=== PATIENT | female | born 1955 | race African-American/Black ===

== ENCOUNTER 2017-02-19 04:41 | Observation (INO) | payer OTHER ==
--- NOTE | ~2017-02-19 | DS ---
Discharge Summary [id number] [place]. [address] NAME: BRIGID MILES : 59 STATUS : DIS Patel PAT#: [id number] AGE: 61 ADM/REG DATE : 02/19/17 MR#: [id number] REPORT SERV DATE: 02/22/17 DICTATED BY: JEFFREY GAITAN DATE: 02/21/17 REPORT STATUS : Draft TRANSCRIBED BY: MODL DATE: 02/21/17 ADMISSION DATE: 02/19/2017 DISCHARGE DATE: 02/21/2017 PRIMARY CARE: At [facility]. REASON FOR ADMISSION: This is a 61-year-old female who was admitted with abdominal pain, intractable nausea and vomiting. DISCHARGE DIAGNOSES: 1. Epigastric abdominal pain, resolving. 2. Transaminitis. 3. Nausea and vomiting. 4. Hypothyroid. 5. Chronic lung pain. HOSPITAL COURSE: Epigastric abdominal pain. The patient had a GI consult and was worked up by Dr. Katherin Foster and Dr. Mock. She would have initial imaging on admission, a CT of the abdomen and pelvis which would show a moderately distended gallbladder with suspected small amount of hyperdense sludge or small gallstone at the gallbladder fundus with no significant gallbladder wall thickening or acute stranding of phlegm or inflammatory changes. The patient would then have a gallbladder ultrasound, which would show cholelithiasis and small amount of gallbladder sludge and thickened gallbladder wall. No reported positive sonographic Haro sign and no abnormal pericholecystic fluid and recommended further evaluation with a HIDA scan. The patient's HIDA scan would show nonvisualization of small bowel with persistent hepatic uptake of the radiotracer throughout the exam, findings highly suspicious for common bile duct obstruction, although the duct is not distended on recent CT and ultrasound from day prior. There are calcifications at the expected distal common duct on the CT concerning for choledocholithiasis. Further evaluation with ERCP should be considered. Surgery did not have plans for surgery at this time. Dr. Mock thought her transaminitis was related to medication she was on. She was on Celexa and Remeron at home. Those were discontinued, thought to possibly be contributing to transaminitis. Also, the patient's total bilirubin which was elevated at 2.3 on admission went down to 1.3 today and her abdominal pain was improved. Dr. Mock did not have a plan for scope or ERCP at this time, so both Surgery and GI were okay with the patient discharging and follow up at Dr. Mock's office in one week if the patient was tolerating food. We had her eat solid diet today for lunch, and she tolerated, so we are discharging her home. As previously mentioned, her bilirubin was 2.3 on admission, it went down to 1.3. Alkaline phosphatase was 141, is 162 today. AST was 767, went down to 275. ALT was at 578, went down to 465, and any ways, we will discontinue the Remeron and Celexa at home and continue Protonix that was started here at the hospital. DISCHARGE CONDITION: Stable. DISCHARGE MEDICATIONS: 1. Synthroid 88 mcg p.o. daily. Discharge Summary [address] [address] NAME: BRIGID MILES : 59 STATUS : DIS Patel PAT#: [id number] AGE: 61 ADM/REG DATE : 02/19/17 MR#: [id number] REPORT SERV DATE: 02/22/17 DICTATED BY: JEFFREY GAITAN DATE: 02/21/17 REPORT STATUS : Draft TRANSCRIBED BY: PRINCESS DATE: 02/21/17 2. Estrogen conjugated 0.625 mg daily. 3. Folic acid 1 mg p.o. daily. 4. Vitamin C 500 mg p.o. daily. 5. Vitamin D 1000 units p.o. daily. 6. Multivitamin one tablet daily. 7. Protonix 40 mg p.o. daily. DISCHARGE PLAN: The patient is discharged to home. Follow up with Dr. Mock in one week. Possibly, will still need ERCP. DICTATED BY: PATY Lam/PRINCESS Jeffrey Gaitan APN / [id number] CC: Maksim Quiroz M.D.
--- NOTE | ~2017-02-19 | CN ---
Consultation Report [facility] [address] [place]. [address] NAME: BRIGID MCGARRY : 59 STATUS : ADM Patel PAT#: [id number] AGE: 61 ADM/REG DATE : 02/19/17 MR#: [id number] REPORT SERV DATE: 02/20/17 DICTATED BY: TEOFILO ASKEW DATE: 02/20/17 REPORT STATUS : Draft TRANSCRIBED BY: MODL DATE: 02/20/17 GI CONSULTATION. DATE OF CONSULTATION: 02/19/2017 REASON FOR CONSULTATION: Elevated liver enzymes, abdominal pain, nausea, and vomiting. HISTORY OF PRESENT ILLNESS: Ms Mcgarry is a 61-year-old black female with a history of hypothyroidism, who presented to [facility] with a chief complaint of abdominal pain, nausea and vomiting which was acute in onset, emesis was bilious in nature without any coffee-ground or hematemesis. She also reported some diarrhea at that time. On admission, her white count is normal, and it was noted that her liver enzymes were elevated. Her bilirubin was 1.1, AST 767, ALT 352, and alkaline phosphatase 99. CT scan was done for her abdominal pain which showed a distended gallbladder with some sludge, but no evidence of cholecystitis. A followup ultrasound was also performed which revealed no sonographic Haro sign. The gallbladder appeared normal with the exception of some mild thickening and small gallstones and sludge. No pericholecystic fluid was seen. Common bile duct appeared normal and no other biliary dilatation. Viral hepatitis was drawn which is pending at this time. Of note, her thyroid is elevated with a TSH of 5.070. PAST MEDICAL HISTORY: Hypothyroidism. SOCIAL HISTORY: No smoking, alcohol, or drug use. FAMILY HISTORY: No GI history. MEDICATIONS: Reviewed. ALLERGIES: REVIEWED. PHYSICAL EXAMINATION: VITAL SIGNS: The patient is afebrile. Her vital signs are stable. GENERAL: The patient is awake, alert, and oriented x3. Well developed, well nourished, in no acute distress. HEENT: Atraumatic and normocephalic. Anicteric. Mucous membranes are moist. CARDIAC: S1, S2. CHEST: Clear to auscultation bilaterally. ABDOMEN: Soft. Mild tenderness in the left abdomen without any rebound or guarding. Bowel sounds normoactive. LABORATORY DATA: WBC 7.4, hemoglobin 12, hematocrit 35.9, and platelets 174. Sodium 143, potassium 3.9, chloride 109, bicarb 29, BUN 5, creatinine 0.86, and glucose 96. Consultation Report [facility] [address] [place]. [address] NAME: BRIGID MCGARRY : 59 STATUS : ADM Patel PAT#: [id number] AGE: 61 ADM/REG DATE : 02/19/17 MR#: [id number] REPORT SERV DATE: 02/20/17 DICTATED BY: TEOFILO ASKEW DATE: 02/20/17 REPORT STATUS : Draft TRANSCRIBED BY: MODL DATE: 02/20/17 Bilirubin 1.1, AST 767, ALT 364, alkaline phosphatase 99. CT scan and ultrasound as dictated above. IMPRESSION AND PLAN: Elevated liver enzymes of unclear etiology predominantly with a hypertransaminasemia, does not appear to be in obstructive process, rather looks more inflammatory/hepatocellular in nature. We need viral hepatitis panel. We will follow up with HIDA scan, which has been ordered. No new medications, and denies any Tylenol use. We would also check INR for further evaluation of hepatic function, may consider also checking PRAKASH, anti-smooth muscle antibody, antimitochondrial antibody, as well. I will discuss the above with Dr. Bin Mock, who will resume care in the morning. PERICO/PRINCESS Teofilo Askew MD / [id number] CC: Tera Hamilton M.D.
--- NOTE | ~2017-02-19 | HP ---
History And Physical [facility] [address] [facility] [place]. [address] NAME: BRIGID MCGARRY : 59 STATUS : ADM Patel PAT#: [id number] AGE: 61 ADM/REG DATE : 02/19/17 MR#: [id number] REPORT SERV DATE: 02/19/17 DICTATED BY: ESTEBAN BAER DATE: 02/19/17 REPORT STATUS : Draft TRANSCRIBED BY: MODL DATE: 02/19/17 DATE OF ADMISSION: 02/19/2017 CHIEF COMPLAINT: Abdominal pain, intractable nausea, and vomiting. HISTORY OF PRESENT ILLNESS: This is a 61-year-old female with a history of hypothyroidism, who presents to the emergency room at [facility] with the above-mentioned complaint. History is obtained from the patient, and reviewing data available on the [employer] system. According to the patient, she had been in her usual state of health until yesterday in the evening when she started experiencing severe epigastric abdominal pain. This was soon followed by drenching sweats and nausea with vomiting. She also had loose watery bowel movements also. This went on through the night. She lay down, was very uncomfortable, and finally she decided to come to the emergency room to be evaluated. In the emergency room, initial workup revealed a CT of the abdomen showing distended gallbladder, sludge versus stone. No evidence of acute cholecystitis. She continued to have severe intractable nausea and vomiting requiring intravenous Zofran and Phenergan. Hospitalist Service is asked to admit her for further evaluation and treatment. At the time of my evaluation, she denied any chest pain or palpitations. She did not have any orthopnea. She had no cough, hemoptysis, night sweats, or weight loss. She has not had any falls or loss of consciousness. No history of fevers, chills. She did have nausea and vomiting as mentioned above. It was mostly bilious. No history of hematemesis. Her diarrhea was without blood as well. No history of hematochezia or hematuria. Her abdominal pain was mostly epigastric radiated to the back, but it was continuous and cramping. No history of recent travel or exposures. PAST MEDICAL HISTORY: Significant for history of hypothyroidism. SOCIAL HISTORY: She does not smoke, drink, or use recreational drugs. She used to be a nursery school teacher. FAMILY HISTORY: Noncontributory. MEDICATIONS: At home are not available at this time. Nursing staff is working on it. REVIEW OF SYSTEMS: As in history of present illness. All other systems were reviewed and are quite unremarkable. PHYSICAL EXAMINATION: GENERAL: This is a pleasant 61-year-old in mild distress due to her abdominal pain and nausea and vomiting. She is alert, awake, oriented to time, place, and person. HEENT: Head is atraumatic, normocephalic. Her pupils are equal, reacting to light and History And Physical [address] [address] NAME: BRIGID MCGARRY : 59 STATUS : ADM Patel PAT#: [id number] AGE: 61 ADM/REG DATE : 02/19/17 MR#: [id number] REPORT SERV DATE: 02/19/17 DICTATED BY: ESTEBAN BAER DATE: 02/19/17 REPORT STATUS : Draft TRANSCRIBED BY: PRINCESS DATE: 02/19/17 accommodating. External ocular muscles are intact. Membranes are moist and pink. Sclerae are nonicteric. NECK: Supple with no jugular venous distention, lymphadenopathy, or thyromegaly. LUNGS: Clear to auscultation with no wheezes, rubs, or crackles. HEART: Heart sounds were regular with no murmurs, rubs, or gallops. ABDOMEN: Soft, nontender, not distended. Bowel sounds are present. There was no organomegaly. EXTREMITIES: Showed no cyanosis, clubbing, or edema. NEUROLOGIC: Grossly intact. No focal sensory or motor deficits. Higher functions appeared intact. She was able to move all four extremities. VITAL SIGNS: Her vital signs today showed a temperature of 97.8, pulse 70, respirations 20 a minute, blood pressure was 157/72, oxygen saturations were 99% on 2 L of oxygen via nasal cannula. LABORATORY DATA: Reviewed. Normal CMP with a blood glucose of 221. Her alkaline phosphatase was 99, ALT and AST were refilled 352 and 767 respectively, lipase was 167. CBC showed a normal white blood cell count, hemoglobin, hematocrit, and platelet count. Urinalysis was grossly unremarkable. Films of the CT scan of her abdomen and pelvis were reviewed and interpreted by me. Official radiology report was also reviewed. There is distended gallbladder possibly from sludge versus stone. There was no evidence of acute cholecystitis. IMPRESSION: 1. Acute epigastric abdominal pain. 2. Intractable nausea and vomiting. 3. Elevated liver enzymes. 4. Hyperglycemia. 5. Abnormal CT of the abdomen. 6. Hypothyroidism. PLAN: We will admit Mrs. Mcgarry to the Hospitalist Service with defensive monitoring for a 24 hour observation. We will keep her n.p.o. for now. Provide her intravenous Zofran and Phenergan for nausea and vomiting on an as-needed basis. We will start her on IV fluids for volume replacement. We will consult Gastroenterology to see her. We will also control blood sugars with NovoLog given subcutaneously per sliding scale and check her A1c. We will also check her TSH and continue her thyroid replacement therapy. She will be on SCDs for DVT prophylaxis while here. We will also get an ultrasound of her gallbladder this morning. She will be on SCDs for DVT prophylaxis while here. I have discussed the above plans with the patient. Her questions were answered, and she is agreeable to the above recommendations. Hospitalist Service will be following her during her stay. /PRINCESS History And Physical [address] [address] NAME: BRIGID MCGARRY : 59 STATUS : ADM Patel PAT#: [id number] AGE: 61 ADM/REG DATE : 02/19/17 MR#: [id number] REPORT SERV DATE: 02/19/17 DICTATED BY: ESTEBAN BAER DATE: 02/19/17 REPORT STATUS : Draft TRANSCRIBED BY: PRINCESS DATE: 02/19/17 Esteban Baer M.D. / [id number] CC: Tera Hamilton M.D.
[2017-02-19 01:59] LABS: BASOPHILS 0.1 %; BASOPHILS ABSOLUTE 0.01 10/3/uL (0.0-0.16); EOSINOPHILS 0 %; HEMATOCRIT 35.9 % (36.0-48.0); IMMATURE GRANULOCYTES 0.2 %; IMMATURE GRANULOCYTES ABSOLUTE 0.02 10/3/uL (0.0-0.11); LYMPHOCYTES 14.8 %; LYMPHOCYTES ABSOLUTE 1.56 10/3/uL (0.67-4.30); MEAN CORPUS HGB CONC 33.4 g/dL (32.0-36.0); MEAN CORPUSCULAR VOLUME 89.8 fL (80-100); MEAN PLATELET VOLUME 11.7 fL (9.2-13.0); MONOCYTES 4.7 %; NEUTROPHILS 80.2 %; NEUTROPHILS ABSOLUTE 8.45 10/3/uL (2.02-8.40); PLATELET COUNT 189 10/3/uL (150-400); RBC DISTRIBUTION WIDTH 12.2 % (12.0-16.0)
[2017-02-19 02:03] LABS: ER CBC TAT 0 Hrs 21 Mins; MANUAL DIFF NO %; WHITE BLOOD CELLS 10.5 10/3/uL (4.5-10.5)
[2017-02-19 02:09] LABS: ALBUMIN 3.8 G/DL (3.5-5.0); BUN (BLOOD UREA NITROGEN) 9 MG/DL (6-23); CALCIUM, SERUM 8.7 MG/DL (8.5-10.4); CHLORIDE, SERUM 107 MMOL/L (96-112); CO2 (CARBON DIOXIDE) 27 MMOL/L (24-34); GFR AFRICAN AMERICAN 71 ML/MIN (>=60); GFR NON AFRICAN AMERICAN 62 ML/MIN (>=60); GLOBULIN 3.7 G/DL (2.5-4.1); POTASSIUM, SERUM 3.7 MMOL/L (3.5-5.3); SGOT(AST) 767 U/L (5-40); SGPT(ALT) 352 U/L (5-65); SODIUM, SERUM 143 MMOL/L (135-148); TOTAL PROTEIN 7.5 G/DL (6.0-8.5)
[2017-02-19 02:10] LABS: ALKALINE PHOSPHATASE 99 U/L (45-117); GLUCOSE, SERUM 221 MG/DL (60-99); TOTAL BILIRUBIN 1.1 MG/DL (0-1.2)
[2017-02-19 02:13] LABS: ASCORBIC ACID (UR NOT ORDER) NEG (NEG); BILIRUBIN, URINE NEGATIVE (NEG); ER URINALYSIS TAT 0 Hrs 00 Mins; KETONE, URINE 20 MG/DL (NEG); LEUKOCYTE ESTERASE(NOT OR NEG (NEG); NITRITE (URINE) NEG (NEG); WBC (NOT ORDERED) (RFLEX) 2 (0-5)
[~2017-02-19 04:41] MED LIST: FOLIC PO; PREM625 PO; SYN88 PO
[2017-02-19 10:22] LABS: BASOPHILS 0.1 %; BASOPHILS ABSOLUTE 0.01 10/3/uL (0.0-0.16); EOSINOPHILS 0 %; HEMATOCRIT 35.9 % (36.0-48.0); LYMPHOCYTES 15.9 %; LYMPHOCYTES ABSOLUTE 1.18 10/3/uL (0.67-4.30); MEAN CORPUS HGB CONC 33.4 g/dL (32.0-36.0); MEAN CORPUSCULAR HEMOGLOB 29.5 pg (26.0-34.0); MEAN CORPUSCULAR VOLUME 88.2 fL (80-100); MEAN PLATELET VOLUME 11.7 fL (9.2-13.0); NEUTROPHILS ABSOLUTE 5.94 10/3/uL (2.02-8.40); PLATELET COUNT 174 10/3/uL (150-400); RBC DISTRIBUTION WIDTH 12.6 % (12.0-16.0); RED CELL COUNT 4.07 10/6/uL (4.0-5.6); WHITE BLOOD CELLS 7.4 10/3/uL (4.5-10.5)
[2017-02-19 10:23] LABS: MANUAL DIFF NO %
[2017-02-19 10:44] LABS: BUN (BLOOD UREA NITROGEN) 5 MG/DL (6-23); CALCIUM, SERUM 8.4 MG/DL (8.5-10.4); CHLORIDE, SERUM 109 MMOL/L (96-112); CO2 (CARBON DIOXIDE) 29 MMOL/L (24-34); CREATININE 0.86 MG/DL (0.55-1.02); GFR AFRICAN AMERICAN 86 ML/MIN (>=60); GFR NON AFRICAN AMERICAN 74 ML/MIN (>=60); GLUCOSE, SERUM 96 MG/DL (60-99); PHOSPHORUS, SERUM 3.3 MG/DL (2.5-4.5); POTASSIUM, SERUM 3.9 MMOL/L (3.5-5.3); SODIUM, SERUM 143 MMOL/L (135-148)
[2017-02-19 12:02] LABS: IRON, SERUM 41 MCG/DL (35-150)
[2017-02-19 12:03] LABS: ACETAMINOPHEN LEVEL (TYLENOL) < 2.0 MCG/ML (10.0-20.0)
[2017-02-19 12:04] LABS: ALCOHOL < 10 MG/DL (0); SALICYLATE < 1.7 MG/DL (-)
[2017-02-19] MEDS ORDERED: VITC500 PO (12:17)
[2017-02-19] MEDS ORDERED: MULTIPLE VIT PO (12:18)
[2017-02-19] MEDS ORDERED: VITAMIN D1000 UNI1 PO (12:18)
[2017-02-19] MEDS ORDERED: IBU800 PO (12:19)
[2017-02-19] MEDS ORDERED: REMERON45 MG PO (12:24)
[2017-02-19] MEDS ORDERED: CELEXA40 MG PO (12:25)
[2017-02-20 04:49] LABS: BASOPHILS 0.2 %; BASOPHILS ABSOLUTE 0.01 10/3/uL (0.0-0.16); EOSINOPHILS 0.4 %; EOSINOPHILS ABSOLUTE 0.02 10/3/uL (0.0-0.53); HEMATOCRIT 32.1 % (36.0-48.0); HEMOGLOBIN 10.4 g/dL (12.0-16.0); IMMATURE GRANULOCYTES 0.2 %; IMMATURE GRANULOCYTES ABSOLUTE 0.01 10/3/uL (0.0-0.11); LYMPHOCYTES 42.9 %; LYMPHOCYTES ABSOLUTE 2.05 10/3/uL (0.67-4.30); MANUAL DIFF NO %; MEAN CORPUS HGB CONC 32.4 g/dL (32.0-36.0); MEAN CORPUSCULAR HEMOGLOB 29.2 pg (26.0-34.0); MEAN CORPUSCULAR VOLUME 90.2 fL (80-100); MEAN PLATELET VOLUME 11.8 fL (9.2-13.0); MONOCYTES 6.9 %; MONOCYTES ABSOLUTE 0.33 10/3/uL (0.21-1.20); NEUTROPHILS 49.4 %; NEUTROPHILS ABSOLUTE 2.36 10/3/uL (2.02-8.40); PLATELET COUNT 141 10/3/uL (150-400); RBC DISTRIBUTION WIDTH 12.5 % (12.0-16.0); RED CELL COUNT 3.56 10/6/uL (4.0-5.6); WHITE BLOOD CELLS 4.8 10/3/uL (4.5-10.5)
[2017-02-20 05:04] LABS: BUN (BLOOD UREA NITROGEN) 2 MG/DL (6-23); CALCIUM, SERUM 7.6 MG/DL (8.5-10.4); CHLORIDE, SERUM 120 MMOL/L (96-112); CO2 (CARBON DIOXIDE) 26 MMOL/L (24-34); CREATININE 0.69 MG/DL (0.55-1.02); GFR AFRICAN AMERICAN 110 ML/MIN (>=60); GFR NON AFRICAN AMERICAN 95 ML/MIN (>=60); GLUCOSE, SERUM 91 MG/DL (60-99); PHOSPHORUS, SERUM 2.4 MG/DL (2.5-4.5); POTASSIUM, SERUM 3.4 MMOL/L (3.5-5.3); SGOT(AST) 575 U/L (5-40); SGPT(ALT) 578 U/L (5-65); SODIUM, SERUM 140 MMOL/L (135-148)
[2017-02-20 05:05] LABS: A/G RATIO 0.8 (0.7-1.9); ALBUMIN 2.7 G/DL (3.5-5.0); ALKALINE PHOSPHATASE 142 U/L (45-117); GLOBULIN 3.2 G/DL (2.5-4.1); TOTAL BILIRUBIN 2.3 MG/DL (0-1.2); TOTAL PROTEIN 5.9 G/DL (6.0-8.5)
[2017-02-20 10:22] LABS: ANA TITER <1:40 TITER
[2017-02-20 10:44] LABS: HEPATITIS B SURFACE ANTIGEN NON-REACTIVE (NON-REACT)
[2017-02-20 11:01] LABS: HEPATITIS B CORE AB IGM NON-REACTIVE (NON-REAC)
[2017-02-20 11:02] LABS: HEP A ANTIBODY IGM NON-REACTIVE (NON-REACT)
[2017-02-21 05:27] LABS: C-REACTIVE PROTEIN 5.9 MG/L (<8.0); DIRECT BILIRUBIN 0.7 MG/DL (0.0-0.4); GAMMA GT 319 U/L (5-85); INDIRECT BILIRUBIN(NOT ORDER) 0.6 MG/DL (0.1-0.9)
[2017-02-21 05:29] LABS: TOTAL BILIRUBIN 1.3 MG/DL (0-1.2)
[2017-02-21 07:00] LABS: SED RATE 16 MM/HR (0-20)
[2017-02-21 09:05] LABS: BASOPHILS 0.2 %; BASOPHILS ABSOLUTE 0.01 10/3/uL (0.0-0.16); EOSINOPHILS 0.7 %; EOSINOPHILS ABSOLUTE 0.03 10/3/uL (0.0-0.53); HEMATOCRIT 32.3 % (36.0-48.0); HEMOGLOBIN 10.8 g/dL (12.0-16.0); LYMPHOCYTES 50.9 %; LYMPHOCYTES ABSOLUTE 2.24 10/3/uL (0.67-4.30); MANUAL DIFF NO %; MEAN CORPUS HGB CONC 33.4 g/dL (32.0-36.0); MEAN CORPUSCULAR VOLUME 89.7 fL (80-100); MEAN PLATELET VOLUME 12.5 fL (9.2-13.0); MONOCYTES 7.3 %; MONOCYTES ABSOLUTE 0.32 10/3/uL (0.21-1.20); NEUTROPHILS 40.9 %; PLATELET COUNT 144 10/3/uL (150-400); RBC DISTRIBUTION WIDTH 12.5 % (12.0-16.0); WHITE BLOOD CELLS 4.4 10/3/uL (4.5-10.5)
[2017-02-21 09:13] LABS: INTERNATIONAL NORMAL RATI 1.2 UNITS (-); PROTIME (NOT ORD) 14.9 SEC (12.0-14.5)
[2017-02-21 09:18] LABS: A/G RATIO 0.9 (0.7-1.9); ALKALINE PHOSPHATASE 161 U/L (45-117); BUN (BLOOD UREA NITROGEN) 2 MG/DL (6-23); CHLORIDE, SERUM 113 MMOL/L (96-112); CO2 (CARBON DIOXIDE) 27 MMOL/L (24-34); CREATININE 0.64 MG/DL (0.55-1.02); GFR AFRICAN AMERICAN 113 ML/MIN (>=60); GFR NON AFRICAN AMERICAN 98 ML/MIN (>=60); GLOBULIN 3.3 G/DL (2.5-4.1); GLUCOSE, SERUM 88 MG/DL (60-99); POTASSIUM, SERUM 3.4 MMOL/L (3.5-5.3); SGOT(AST) 275 U/L (5-40); SGPT(ALT) 465 U/L (5-65); SODIUM, SERUM 147 MMOL/L (135-148); TOTAL PROTEIN 6.3 G/DL (6.0-8.5)
[2017-02-21] MEDS ORDERED: PROTONIX PO (16:20)
[2017-02-22 07:58] LABS: HEPATITIS C ANTIBODY NON-REACTIVE (NON-REACT)
== END 2017-02-21 17:16 | disposition home or self-care (01) ==
LOC: ER 04:41 → CDU1 06:19
PROVIDERS: Hospitalist; Internal Medicine; Internal Medicine Gastroenterology; Internal Medicine Pulmonary Disease; Nurse Practitioner Family; Surgery
DX: R10.13 Epigastric pain (principal); E03.9 Hypothyroidism, unspecified; R11.2 Nausea with vomiting, unspecified; R94.5 Abnormal results of liver function studies; R73.9 Hyperglycemia, unspecified; R74.0 Nonspecific elevation of levels of transaminase and lactic acid dehydrogenase [LDH]; G89.29 Other chronic pain; F32.9 Major depressive disorder, single episode, unspecified; Z79.899 Other long term (current) drug therapy; Z90.710 Acquired absence of both cervix and uterus; Z98.890 Other specified postprocedural states
CPT/HCPCS: 74176; 76705; 78227; 80048; 80053; 80074; 80307; 81001; 82247; 82248; 82962; 82977; 83036; 83540; 83690; 83735; 84100; 84443; 84466; 85025; 85610; 85652; 86039; 86140; 96372; 96374; 96375; 96376; 99285; A9270-GY; A9537; G0378; J1170; J2405; J2805